=== PATIENT | female | born 1990 | race Hispanic/Latino ===

== ENCOUNTER 2020-08-30 04:54 | Observation (INO) | payer SELFPAY ==
[2020-08-30] VITALS (21 sets, daily range): BP systolic 97–118; BP diastolic 52–73
[2020-08-30] MEDS ORDERED: MORPHINE SULFATE 4 MG/1ML SYG ONE ×3 (05:08→09:03)
[2020-08-30] MEDS ORDERED: ONDANSETRON HCL 4 MG/2 ML VIAL ONE ×4 (05:08→11:30)
[2020-08-30 05:31] LABS: BASOPHILS % (AUTO) 0.5 % (0.0-5.0); HEMATOCRIT 37.5 % (36-48); LYMPHOCYTES % (AUTO) 8.3 % (21.0-51.0); MEAN CORPUSCULAR HEMOGLOBIN 29.8 pg (27.0-33.0); MEAN CORPUSCULAR HGB CONC 34.1 g/dL (32.0-36.0); MEAN CORPUSCULAR VOLUME 87.2 fL (79-99); MONOCYTES % (AUTO) 3.6 % (3.0-13.0); NEUTROPHILS % (AUTO) 86.2 % (40.0-77.0); PLATELET COUNT (AUTO) 228 K/uL (130-400); RED CELL DISTRIBUTION WIDTH 12.2 % (11.0-15.5); WHITE BLOOD COUNT (AUTO) 18.1 K/uL (4.8-10.8)
[2020-08-30 05:32] LABS: APPEARANCE,URINE Clear (CLEAR); BILIRUBIN,URINE Negative (NEGATIVE); COLOR,URINE Yellow (YELLOW); GLUCOSE, URINE (UA) Negative (NEGATIVE); KETONES,URINE >=80 mg/dL (NEGATIVE); LEUKOCYTE ESTERASE ,URINE Negative (NEGATIVE); NITRATE,URINE Negative (NEGATIVE); OCCULT BLOOD,URINE Nonhemolyzed Trace (NEGATIVE); PH,URINE 8.5 (5.0-8.0); PROTEIN,URINE Negative (NEGATIVE); UROBILINOGEN,URINE 0.2 mg/dL (0.2-1.0)
[2020-08-30 05:37] LABS: HCG,QUAL RESULT NEGATIVE (NEGATIVE)
[2020-08-30 05:38] LABS: CREATININE 0.8 mg/dL (0.5-1.5); POTASSIUM 3.4 mmol/L (3.5-5.1)
[2020-08-30 05:41] LABS: BACTERIA,URINE Rare /HPF (None Seen); MUCUS,URINE Moderate LPF (None Seen); SQUAMOUS EPITHELIAL CELL,UR Few /HPF (0-2)
[2020-08-30 05:42] LABS: ALBUMIN 4.1 g/dL (3.5-5.0); BILIRUBIN,TOTAL 0.3 mg/dL (0.2-1.0); TOTAL PROTEIN, SERUM 7.9 g/dL (6.0-8.3)
[2020-08-30] MEDS ORDERED: IOHEXOL 350 MG/ML 100ML INFUS..BTL IV ONE (07:23)
[2020-08-30] MEDS ORDERED: SODIUM CHLORIDE 0.9% 1000ML 1,000 ML IV ONE (09:04)
[2020-08-30] MEDS ORDERED: NORG1TAB83 PO (10:47)
[2020-08-30] MEDS ORDERED: ZOSYN 3.375GM+NS 50ML 50 ML IV ONE (11:26)
[2020-08-30] MEDS ORDERED: LIDOCAINE PF 2% 5ML ABBOJECT ONE (11:29)
[2020-08-30] MEDS ORDERED: SUCCINYLCHOLINE 200MG/10ML SYR ONE (11:29)
[2020-08-30] MEDS ORDERED: DEXAMETHASONE SOD PHOSPHATE 10MG/ML 1ML VIAL ONE (11:29)
[2020-08-30] MEDS ORDERED: FENTANYL CITRATE PF 50 MCG/1 ML 2ML VIAL ONE (11:30)
[2020-08-30] MEDS ORDERED: ROCURONIUM 10MG/1ML SYR 10 MG/ML ML ONE (11:30)
[2020-08-30] MEDS ORDERED: MIDAZOLAM HCL 1 MG/ML 2ML VIAL ONE (11:30)
[2020-08-30] MEDS ORDERED: PROPOFOL 10 MG/ML 20ML VIAL IV ONE (11:30)
[2020-08-30] MEDS ORDERED: BUPIVACAINE/PF 0.5% 30ML VIAL ONE (11:37)
[2020-08-30] MEDS ORDERED: NEOSTIGMINE 5MG/5ML SYR IV ONE (12:04)
[2020-08-30] MEDS ORDERED: GLYCOPYRROLATE 1 MG/5 ML SYRINGE ONE (12:04)
[2020-08-30] MEDS: LACTATED RINGERS 1000ML 1,000 ML IV SCH ×2 (12:25→12:30)
[2020-08-30] MEDS ORDERED: MORPHINE SULFATE 4 MG/1ML SYG IV PRN (12:30)
[2020-08-30] MEDS ORDERED: ONDANSETRON HCL 4 MG/2 ML VIAL IVP PRN (12:30)
[2020-08-30] MEDS ORDERED: ACETAMINOPHEN 325 MG TAB PO PRN ×2 (12:30→19:30)
[2020-08-30] MEDS ORDERED: MEPERIDINE-PF 25 MG/ML SYG ONE (12:31)
[2020-08-30] MEDS ORDERED: METOCLOPRAMIDE 10 MG/2 ML VIAL ONE (12:31)
[2020-08-30] MEDS ORDERED: KETOROLAC TROMETHAMINE 30MG/ML ONE (12:31)
[2020-08-30] MEDS ORDERED: PHARMACY COMMUNICATION MISC SCH (12:45)
[2020-08-30] MEDS: ZOSYN 3.375GM+NS 50ML 50 ML IV SCH ×2 (13:00→20:15)
[2020-08-30] MEDS ORDERED: LIDOCAINE HCL-MPF 1% 2ML VIAL IV PRN (18:15)
[2020-08-30] MEDS ORDERED: POTASSIUM CHLORIDE 10% ELIXIR 20 MEQ/15 ML UDCUP PO PRN (18:15)
[2020-08-30] MEDS ORDERED: POTASSIUM CHLORIDE 20MEQ/100ML 100 ML IV PRN (18:15)
[2020-08-30] MEDS ORDERED: POTASSIUM CHLORIDE 20 MEQ ERTAB PO ONE (18:22)
[2020-08-30] MEDS ORDERED: FAMOTIDINE/PF 20 MG/2 ML VIAL IV ONE (18:23)
[2020-08-30] MEDS: POTASSIUM CHLORIDE 20 MEQ ERTAB PO PRN ×2 (20:15→23:31)
[2020-08-30] MEDS: FAMOTIDINE/PF 20 MG/2 ML VIAL IV SCH (20:15)
[2020-08-31] MEDS: HYDROCODONE/ACETAMINOPHEN 5/325 MG TAB PO PRN ×2 (03:57→16:31)
[2020-08-31 04:00] VITALS: BP 115/67
[2020-08-31] MEDS: ZOSYN 3.375GM+NS 50ML 50 ML IV SCH (04:04)
[2020-08-31] MEDS: LACTATED RINGERS 1000ML 1,000 ML IV SCH (04:07)
[2020-08-31 05:54] LABS: HEMATOCRIT 31.4 % (36-48); MEAN CORPUSCULAR HEMOGLOBIN 29.8 pg (27.0-33.0); MEAN CORPUSCULAR HGB CONC 33.4 g/dL (32.0-36.0); MEAN CORPUSCULAR VOLUME 89.2 fL (79-99); PLATELET COUNT (AUTO) 176 K/uL (130-400); RED BLOOD CELL COUNT(AUTO) 3.52 MIL/uL (4.00-5.50); RED CELL DISTRIBUTION WIDTH 12.6 % (11.0-15.5); WHITE BLOOD COUNT (AUTO) 11.5 K/uL (4.8-10.8)
[2020-08-31 06:08] LABS: BILIRUBIN,TOTAL 0.3 mg/dL (0.2-1.0); CREATININE 0.8 mg/dL (0.5-1.5); POTASSIUM 4.1 mmol/L (3.5-5.1); TOTAL PROTEIN, SERUM 6.2 g/dL (6.0-8.3)
[2020-08-31 06:20] LABS: BAND NEUTROPHILS % (MANUAL) 6 % (0-2); LYMPHOCYTES % (MANUAL) 17 % (22-44); MAN.DIFF COMMENT-IMPRESSION MANUAL DIFFERENTIAL; MONOCYTES % (MANUAL) 5 % (2-9); PLATELET MORPHOLOGY COMMENT ADEQUATE; SEGMENTED NEUTROPHILS % 72 % (40-70)
[2020-08-31 08:00] VITALS: BP 114/72
[2020-08-31] MEDS: FAMOTIDINE/PF 20 MG/2 ML VIAL IV SCH (08:55)
[2020-08-31 11:00] VITALS: BP 126/68
== END 2020-08-31 17:31 | disposition home or self-care (01) ==
LOC: EDH 04:54 → EDHIP 04:55 → INTOOBSV 04:55 → 3BH 10:08
PROVIDERS: ADMIT Specialist; ATTEND Specialist
DX: K35.80 Unspecified acute appendicitis (principal)
CPT/HCPCS: 36415 ×2; 44970; 74176; 74177; 80053 ×2; 81001; 81025; 83690; 85025 ×2; 88304; 96365; 96366 ×2; 96375 ×2; 96376; 99285; A4215; A4600; A4649 ×4; A6206; C1769 ×3; G0378 ×30; J0330; J1100; J1885; J2001; J2175; J2250; J2270 ×4; J2405 ×5; J2543 ×3; J2704; J2710; J2765; J3010; J3490 ×4; J7030 ×2; J7120 ×2; Q9967